=== PATIENT | female | born 1975 | race African-American/Black ===

== ENCOUNTER 2019-08-30 18:13 | Emergency (ER) | payer MEDICAID, OTHER ==
[~2019-08-30] VITALS: Ht 153 cm; Wt 79.4 kg
--- NOTE | 2019-08-30 18:29 | NUR ---
ED Nurse Note: PT WALKED IN DUE TO RIGHT LEG PAIN 8/10 AND PAIN AGGRAVATED WHEN MOVING OR AMBULATING AROUND. AAO X4, AMBULATORY AND FOLLOWS COMMANDS.
[2019-08-30] MEDS ORDERED: traMADol 50mg tab ORAL ONE (19:45)
--- NOTE | 2019-08-30 19:58 | Emergency Room Report ---
History of Present Illness General Chief Complaint: Lower Extremity Injury Source: Patient Present Illness HPI 44 yO Female presents to the ED c/o 04/30 in severity Right hip pain x 1 week. pt. reports pain is progressive and exacerbated upon walking. Patient denies trauma or fall she denies history of injury to the right hip. Patient denies bruises, erythema, warmth or open wounds. Patient denies low back pain. Patient reports some intermittent shooting exacerbations that shoot down the posterior leg. She denies saddle anesthesia, urinary incontinence or urinary retention. Patient reports she has been doing a lot of increased walking lately. Patient states that now her pain is pretty constant even during times of rest. Patient reports resting does improve her pain significantly though. No other aggravating or relieving factors at this time. Allergies: Uncoded Allergies: PENICILLIN (Allergy, Unknown, 08/30/19) Patient History Past Medical History: see triage record Past Surgical History: none Pertinent Family History: none Now: No Immunizations: UTD Reviewed Nursing Documentation: PMH: Agreed; PSxH: Agreed Nursing Documentation-PMH Past Medical History: No Stated History Review of Systems All Other Systems: negative except mentioned in HPI Physical Exam Vital Signs Date Time Temp Pulse Resp B/P (MAP) Pulse Ox O2 Delivery O2 Flow Rate FiO2 08/30/19 18:19 98.2 77 18 133/82 (99) 98 Room Air Sp02 EP Interpretation: reviewed, normal General Appearance: no apparent distress, alert, GCS 15, non-toxic Head: normocephalic, atraumatic Eyes: bilateral eye normal inspection, bilateral eye PERRL ENT: hearing grossly normal, normal voice Neck: full range of motion Respiratory: chest non-tender, lungs clear, normal breath sounds, speaking full sentences Cardiovascular #1: regular rate, rhythm Cardiovascular #2: 2+ dorsalis pedis (R), 2+ dorsalis pedis (L) Gastrointestinal: non tender, soft Genitourinary: normal inspection, no CVA tenderness Musculoskeletal: back normal, normal range of motion, gait/station normal, tender - mild lateral right hip ttp. pt. FROM, no clicking. no leg length discrepancy, NO obvious Deformity, normal strength, pt. ambulatory without assistance. Neurologic: alert, motor strength/tone normal, oriented x3, sensory intact, responsive, speech normal Psychiatric: judgement/insight normal Skin: normal color, normal inspection Lymphatic: no adenopathy Medical Decision Making PA Attestation Dr. Swan Is my supervising Physician whom patient management has been discussed with. Diagnostic Impression: Primary Impression: Hip pain, right ER Course 44 yO Female presents to the ED c/o 04/30 in severity Right hip pain x 1 week. pt. reports pain is progressive and exacerbated upon walking. Patient denies trauma or fall she denies history of injury to the right hip. Patient denies bruises, erythema, warmth or open wounds. Patient denies low back pain. Patient reports some intermittent shooting exacerbations that shoot down the posterior leg. She denies saddle anesthesia, urinary incontinence or urinary retention. Patient reports she has been doing a lot of increased walking lately. Patient states that now her pain is pretty constant even during times of rest. Patient reports resting does improve her pain significantly though. No other aggravating or relieving factors at this time. Ddx considered but are not limited to Fracture, dislocation, contusion, Sprain/ Strain/Spasm, Avascular necrosis, Septic Joint, Sciatica just to name a few. Vital signs: are WNL, pt. is afebrile H&PE are most consistent with musculoskeletal injury will perform imaging to r/ o fractures/dislocations. ORDERS: - X-ray Right Hip w/ PA 4 views - negative for fx, Dislocation, or significant soft tissue injury, per preliminary read in ED, and signed by NURY Cuevas, my supervising physician has reviewed, and agrees with my interpretation. ED INTERVENTIONS: - Tramadol PO DISCHARGE: At this time pt. is stable for d/c to home. Will provide printed patient care instructions, and any necessary prescriptions. Care plan and follow up instructions have been discussed with the patient prior to discharge. Other X-Ray Diagnostic Results Other X-Ray Diagnostic Results : X-Ray ordered: Right HIp with PA # of Views/Limited Vs Complete: 3 View Indication: Pain EP Interpretation: Yes PA Xray: Interpretation reviewed, by supervising MD, and agrees with findings. Interpretation: no dislocation, no soft tissue swelling, no fractures Impression: No acute disease Electronically Signed by: Kaylie Cuevas PA-C Last Vital Signs Date Time Temp Pulse Resp B/P (MAP) Pulse Ox O2 Delivery O2 Flow Rate FiO2 08/30/19 18:19 98.2 77 18 133/82 (99) 98 Room Air Disposition: HOME, SELF-CARE Condition: Stable Scripts Tramadol Hcl* (ULTRAM*) 50 Mg Tablet 50 MG ORAL Q6H PRN for For Pain, #15 TAB 0 Refills Prov: Kaylie Cuevas 08/30/19 Referrals: Praneeth Tian MD (PCP) Patient Instructions: Hip Pain Additional Instructions: Take medications as directed. *8 Do not drink alcohol, drive, or operate heavy machinery while taking Tramadol as this may cause drowsiness. Follow up with a Primary Care Provider in 3-5 days, even if your symptoms have resolved. Return sooner to ED if new symptoms occur, or current symptoms become worse. - Please note that this Emergency Department Report was dictated using [employer] assistant technology software, occasionally this can lead to erroneous entry secondary to interpretation by the dictation equipment. Kaylie Cuevas Aug 30, 2019 19:58
[2019-08-30] MEDS ORDERED: TRAMADOL HCL50 MG ORAL (19:59)
[2019-08-30 20:05] VITALS: BP 133/82
--- NOTE | 2019-08-30 20:05 | NUR ---
ER DISCHARGE NOTE: Patient is cleared to be discharged per ERMD, pt is aox4, on room air, with stable vital signs. pt was given dc and prescription instructions, pt was able to verbalize understanding, pt id band removed. pt is able to ambulate with steady gait. pt took all belongings.
--- NOTE | 2019-08-31 11:39 | Diagnostic Imaging Report ---
Indication: Loops pain Technique: One view the pelvis, 2 views of the right hip Comparison: none Findings: No acute fractures. No dislocations. The joint spaces are preserved. Impression: Negative
== END 2019-08-30 20:05 | disposition home or self-care (01) ==
LOC: EMR 19:10
DX: M25.551 Pain in right hip (principal); Z88.0 Allergy status to penicillin
CPT/HCPCS: 73501; Z7502; 99283